=== PATIENT | male | born 1975 | race African-American/Black ===

== ENCOUNTER 2017-09-30 11:05 | Emergency (ER) | payer SELFPAY ==
[2017-09-30 11:31] LABS: APPEARANCE CLEAR (CLEAR); BILIRUBIN NEGATIVE (NEGATIVE); COLOR YELLOW (YELLOW); GLUCOSE NEGATIVE (NEGATIVE); KETONE NEGATIVE (NEGATIVE); NITRITE NEGATIVE (NEGATIVE); PROTEIN NEGATIVE (NEGATIVE); UROBILINOGEN NORMAL (NORMAL)
[2017-09-30 11:32] LABS: WHITE CELLS - URINE 25-50 /hpf (0-5)
[2017-09-30 11:33] LABS: BACTERIA MODERATE /hpf (NONE SEEN); EPITHELIAL CELLS 0-5 /hpf (0-5); MUCUS >1+ /lpf (NONE SEEN); RED CELLS - URINE 0-5 /hpf (0-5)
== END 2017-09-30 11:59 | disposition home or self-care (01) ==
LOC: D.ER 11:05
PROVIDERS: Nurse Practitioner Family
DX: Z20.2 Contact with and (suspected) exposure to infections with a predominantly sexual mode of transmission (principal); R36.9 Urethral discharge, unspecified

== ENCOUNTER 2017-11-16 13:49 | Emergency (ER) | payer SELFPAY ==
[2017-11-19 08:18] LABS: CHLAMYDIA TRACHOMATIS, NAA Positive (Negative)
== END 2017-11-16 15:13 | disposition home or self-care (01) ==
LOC: D.ER 13:49
PROVIDERS: Family Medicine
DX: R30.0 Dysuria (principal); Z20.2 Contact with and (suspected) exposure to infections with a predominantly sexual mode of transmission; F17.200 Nicotine dependence, unspecified, uncomplicated